=== PATIENT | female | born 1940 | race Caucasian/White ===

== ENCOUNTER 2020-12-30 05:49 | Emergency (ER) | payer MEDICARE, OTHER ==
--- NOTE | 2020-12-30 06:25 | EDM.PDOC ---
<Sam Schofield - Last Filed: 12/30/20 08:28> ED HPI GENERAL MEDICAL PROBLEM - General Chief Complaint: General Stated Complaint: WEAK/ABDOMINAL PAIN/HEADACHE Time Seen by Provider: 12/30/20 06:24 - History of Present Illness INITIAL COMMENTS - FREE TEXT/NARRATIVE: 80-year-old female presents the emergency room with loss of appetite. Patient has not had any appetite for the last couple of days she has not been eating and is drinking very little. As the patient recalls the last time she had an episode like this was thought to perhaps be due to hyponatremia. Patient has not had any diarrhea. She has had some nausea and a mild upset stomach. Her urine output has diminished some because she is not drinking. She really is not complaining of any abdominal discomfort or chest discomfort. She has not noticed loss of taste or smell. She is not aware of any fevers or chills she is not having any breathing difficulties or shortness of breath. 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 Denies: Abdominal Pain, Constipation, Diarrhea, Vomiting : Reports: No Symptoms Musculoskeletal: Reports: No Symptoms ED EXAM, GENERAL - Physical Exam Exam: See Below Exam Limited By: No Limitations General Appearance: Alert, No Apparent Distress Head: Atraumatic, Normocephalic Neck: Normal Inspection, Supple, Non-Tender, Full Range of Motion Respiratory/Chest: No Respiratory Distress, Lungs Clear, Normal Breath Sounds Cardiovascular: Regular Rate, Rhythm, No Edema, No Murmur GI/Abdominal: Normal Bowel Sounds, Soft, Non-Tender Back Exam: Normal Inspection. No: CVA Tenderness (L), CVA Tenderness (R) Extremities: Normal Inspection, No Pedal Edema Neurological: Alert, Oriented, Normal Cognition Psychiatric: Normal Affect, Normal Mood Skin Exam: Warm, Dry, Intact #1 Interpretation EKG Date: 12/30/20 Rhythm: NSR Rate (Beats/Min): 56 [place]: Normal P-Wave: Present QRS: Normal ST-T: Normal QT: Prolonged Comparison: NA - No Prior EKG EKG Interpretation Comments: Abnormal EKG Course - Re-Assessments/Exams Free Text/Narrative Re-Assessment/Exam: 12/30/20 08:28 Patient has mild hyponatremia sodium is 128 chloride 91 potassium 3.5 CO2 24 BUN 14 creatinine 0.7 anion gap is 16.5 hemoglobin hematocrit 13.7 and 40.1% respectively white count is low at 2810 platelet count 233,000 KUB and upright are nondiagnostic she is got significant degenerative changes noted she has some nonspecific air-fluid levels noted on the upright otherwise no diagnostic abnormalities at this point were waiting for Covid and her UA 12/30/20 09:01 At this time is change of shift further evaluation and disposition per Dr. Bo. Departure - Departure Disposition: Home, Self-Care 01 Clinical Impression: COVID-19, Nausea - Discharge Information Prescriptions: Metoclopramide HCl [Reglan] 5 mg PO Q6H PRN #20 tablet PRN Reason: Nausea/Vomiting Referrals: Abraham Fontenot MD [Primary Care Provider] - 1 Week Forms: ED Department Discharge Additional Instructions: Drink plenty of fluids. Take the reglan 5mg every 6 hours as needed for nausea and vomiting. Take tylenol or motrin for any fever. Follow up with your doctor within a week. Please return if you are worse. Sepsis Event Note (ED) - Evaluation Sepsis Screening Result: No Definite Risk <Pool Bo - Last Filed: 12/30/20 12:25> Course - Vital Signs Last Recorded V/S: Last Vital Signs Temp 99.0 F 12/30/20 10:15 Pulse 52 L 12/30/20 10:45 Resp 14 12/30/20 10:45 BP 140/64 12/30/20 10:45 Pulse Ox 90 L 12/30/20 10:45 - Orders/Labs/Meds Orders: Active Orders 24 hr Category Date Time Status Vital Signs [RC] Q15M Care 12/30/20 09:33 Active CULTURE URINE [MREF] Stat Lab 12/30/20 10:10 Received Dextrose 5%-0.9% NaCl [Dextrose 5%-Normal Saline] 1,000 Med 12/30/20 07:00 Active ml IV ASDIRECTED EPINEPHrine [Adrenalin] Med 12/30/20 09:33 Active 0.3 mg IM ONETIME PRN Famotidine [Pepcid] Med 12/30/20 09:33 Active 20 mg IVPUSH ONETIME PRN Sodium Chloride 0.9% [Saline Flush] Med 12/30/20 09:45 Active 30 ml FLUSH ASDIRECTED diphenhydrAMINE [Benadryl] Med 12/30/20 09:33 Active 50 mg IVPUSH ONETIME PRN methylPREDNISolone Sod Succ [Solu-MEDROL] Med 12/30/20 09:33 Active 125 mg IVPUSH ONETIME PRN Medication Orders Diphenhydramine HCl (Diphenhydramine 50 Mg/Ml Sdv) 50 mg IVPUSH ONETIME PRN PRN Reason: hypersensitivity reaction Epinephrine HCl (Epinephrine 1 Mg/Ml Sdv) 0.3 mg IM ONETIME PRN PRN Reason: hypersensitivity reaction Famotidine (Famotidine 20 Mg/2 Ml Sdv) 20 mg IVPUSH ONETIME PRN PRN Reason: hypersensitivity reaction Dextrose/Sodium Chloride (Dextrose 5%-Normal Saline) 1,000 mls @ 125 mls/hr IV ASDIRECTED [facility] Last Admin: 12/30/20 08:05 Dose: 125 mls/hr Documented by: ZACK Methylprednisolone Sodium Succinate (Methylprednisolone Sodium Succinate 125 Mg/2 Ml Sdv) 125 mg IVPUSH ONETIME PRN PRN Reason: hypersensitivity reaction Sodium Chloride (Sodium Chloride 0.9% 10 Ml Syringe) 30 ml FLUSH ASDIRECTED [facility] Labs: Laboratory Tests 09/12/30/20 12/30/20 Range/Units 06:30 06:30 06:32 WBC 2.91 L (3.98-10.04) K/mm3 RBC 4.69 (3.98-5.22) M/mm3 Hgb 13.7 (11.2-15.7) gm/dl Hct 40.1 (34.1-44.9) % MCV 85.5 (79.4-94.8) fl MCH 29.2 (25.6-32.2) pg MCHC 34.2 (32.2-35.5) g/dl RDW Std Deviation 43.0 (36.4-46.3) fL Plt Count 233 D (182-369) K/mm3 MPV 10.3 (9.4-12.3) fl Neut % (Auto) 55.5 (34.0-71.1) % Lymph % (Auto) 30.2 (19.3-51.7) % [place] % (Auto) 13.7 H (4.7-12.5) % Eos % (Auto) 0 L (0.7-5.8) Baso % (Auto) 0.3 (0.1-1.2) % Neut # (Auto) 1.61 (1.56-6.13) K/mm3 Lymph # (Auto) 0.88 L (1.18-3.74) K/mm3 [place] # (Auto) 0.40 H (0.24-0.36) K/mm3 Eos # (Auto) 0.00 L (0.04-0.36) K/mm3 Baso # (Auto) 0.01 (0.01-0.08) K/mm3 Sodium 128 L (136-145) mEq/L Potassium 3.5 (3.5-5.1) mEq/L Chloride 91 L (98-107) mEq/L Carbon Dioxide 24 (21-32) mEq/L Anion Gap 16.5 H (5-15) BUN 14 (7-18) mg/dL Creatinine 0.7 (0.55-1.02) mg/dL Est Cr Clr Drug Dosing 49.85 mL/min Estimated GFR (MDRD) > 60 (>60) mL/min BUN/Creatinine Ratio 20.0 H (14-18) Glucose 122 H (70-99) mg/dL Calcium 8.4 L (8.5-10.1) mg/dL Total Bilirubin 0.4 (0.2-1.0) mg/dL AST 27 (15-37) U/L ALT 29 (14-59) U/L Alkaline Phosphatase 67 (46-116) U/L Troponin I < 0.017 (0.00-0.056) ng/mL Total Protein 7.5 (6.4-8.2) g/dl Albumin 3.3 L (3.4-5.0) g/dl Globulin 4.2 gm/dL Albumin/Globulin Ratio 0.8 L (1-2) Lipase 139 (73-393) U/L Urine Color (Yellow) Urine Appearance (Clear) Urine pH (5.0-8.0) Ur Specific Welcome (1.005-1.030) Urine Protein (Negative) Urine Glucose (UA) (Negative) Urine Ketones (Negative) Urine Occult Blood (Negative) Urine Nitrite (Negative) Urine Bilirubin (Negative) Urine Urobilinogen (0.2-1.0) Ur Leukocyte Esterase (Negative) Urine RBC (0-5) /hpf Urine WBC (0-5) /hpf Ur Squamous Epith Cells (0-5) /hpf Urine Bacteria (FEW) /hpf Urine Mucus (FEW) /hpf SARS-CoV-2 RNA (LAUREL) (NEGATIVE) 12/30/20 12/30/20 Range/Units 08:00 10:10 WBC (3.98-10.04) K/mm3 RBC (3.98-5.22) M/mm3 Hgb (11.2-15.7) gm/dl Hct (34.1-44.9) % MCV (79.4-94.8) fl MCH (25.6-32.2) pg MCHC (32.2-35.5) g/dl RDW Std Deviation (36.4-46.3) fL Plt Count (182-369) K/mm3 MPV (9.4-12.3) fl Neut % (Auto) (34.0-71.1) % Lymph % (Auto) (19.3-51.7) % [place] % (Auto) (4.7-12.5) % Eos % (Auto) (0.7-5.8) Baso % (Auto) (0.1-1.2) % Neut # (Auto) (1.56-6.13) K/mm3 Lymph # (Auto) (1.18-3.74) K/mm3 [place] # (Auto) (0.24-0.36) K/mm3 Eos # (Auto) (0.04-0.36) K/mm3 Baso # (Auto) (0.01-0.08) K/mm3 Sodium (136-145) mEq/L Potassium (3.5-5.1) mEq/L Chloride (98-107) mEq/L Carbon Dioxide (21-32) mEq/L Anion Gap (5-15) BUN (7-18) mg/dL Creatinine (0.55-1.02) mg/dL Est Cr Clr Drug Dosing mL/min Estimated GFR (MDRD) (>60) mL/min BUN/Creatinine Ratio (14-18) Glucose (70-99) mg/dL Calcium (8.5-10.1) mg/dL Total Bilirubin (0.2-1.0) mg/dL AST (15-37) U/L ALT (14-59) U/L Alkaline Phosphatase (46-116) U/L Troponin I (0.00-0.056) ng/mL Total Protein (6.4-8.2) g/dl Albumin (3.4-5.0) g/dl Globulin gm/dL Albumin/Globulin Ratio (1-2) Lipase (73-393) U/L Urine Color Yellow (Yellow) Urine Appearance Clear (Clear) Urine pH 6.5 (5.0-8.0) Ur Specific [place] 1.020 (1.005-1.030) Urine Protein Negative (Negative) Urine Glucose (UA) Negative (Negative) Urine Ketones 1+ H (Negative) Urine Occult Blood Trace-lysed H (Negative) Urine Nitrite Negative (Negative) Urine Bilirubin Negative (Negative) Urine Urobilinogen 0.2 (0.2-1.0) Ur Leukocyte Esterase 1+ H (Negative) Urine RBC 5-10 H (0-5) /hpf Urine WBC 10-20 H (0-5) /hpf Ur Squamous Epith Cells 0-5 (0-5) /hpf Urine Bacteria Moderate H (FEW) /hpf Urine Mucus Few (FEW) /hpf SARS-CoV-2 RNA (LAUREL) Positive H (NEGATIVE) Meds: Medications Generic Name Dose Route Start Last Admin Trade Name Jocelyn PRN Reason Stop Dose Admin Diphenhydramine HCl 50 mg 12/30/20 09:33 Diphenhydramine 50 Mg/Ml Sdv IVPUSH ONETIME PRN hypersensitivity reaction Epinephrine HCl 0.3 mg 12/30/20 09:33 Epinephrine 1 Mg/Ml Sdv IM ONETIME PRN hypersensitivity reaction Famotidine 20 mg 12/30/20 09:33 Famotidine 20 Mg/2 Ml Sdv IVPUSH ONETIME PRN hypersensitivity reaction Dextrose/Sodium Chloride 1,000 mls @ 125 mls/hr 12/30/20 07:00 12/30/20 08:05 Dextrose 5%-Normal Saline IV 125 mls/hr ASDIRECTED ULISES Administration Methylprednisolone Sodium Succinate 125 mg 12/30/20 09:33 Methylprednisolone Sodium Succinate 125 Mg/2 Ml Sdv IVPUSH ONETIME PRN hypersensitivity reaction Sodium Chloride 30 ml 12/30/20 09:45 Sodium Chloride 0.9% 10 Ml Syringe FLUSH ASDIRECTED ULISES Discontinued Medications Generic Name Dose Route Start Last Admin Trade Name Jocelyn PRN Reason Stop Dose Admin Sodium Chloride 500 mls @ 999 mls/hr 12/30/20 06:49 12/30/20 07:05 Normal Saline IV 12/30/20 07:19 999 mls/hr .BOLUS ONE Administration Bamlanivimab 700 mg/ 310 mls @ 310 mls/hr 12/30/20 10:00 12/30/20 10:14 Etesevimab 1,400 mg/ Sodium IV 12/30/20 10:59 310 mls/hr Chloride ONETIME ONE Administration Ondansetron HCl 4 mg 12/30/20 06:52 12/30/20 07:05 Ondansetron 4 Mg/2 Ml Sdv IVPUSH 12/30/20 06:53 4 mg ONETIME ONE Administration - Re-Assessments/Exams Free Text/Narrative Re-Assessment/Exam: 12/30/20 12:[address] Schofield. Her COVID was positive. Her oxygen saturations looked good. I have ordered the bam. I spoke with the patient to provide information about Bam treatment. I offered them the Patient and Caregiver EUA Bam Fact Sheet to read and review. I stated the drug has been approved by an emergency use authorization (EUA} process and has not fully been FDA reviewed or approved. The patient meets the EUA requirements. I discussed there are other potential treatment options that are currently not FDA approved to treat COVID 19. Offered opportunity to ask questions and all questions were answered. The patient voiced understanding and agreed to proceed with treatment. She got the infusion and she feels good. Her oxygen saturations looked good. I talked to her about starting on dexamethasone. She did not want the dexamethasone at this time. Departure - Departure Time of Disposition: 12:20 Condition: Good - Discharge Information *PRESCRIPTION DRUG MONITORING PROGRAM REVIEWED*: Not Applicable *COPY OF PRESCRIPTION DRUG MONITORING REPORT IN PATIENT FRANTZ: Not Applicable Sepsis Event Note (ED) - Focused Exam Vital Signs: Vital Signs Temp Pulse Resp BP Pulse Ox 12/30/20 10:45 52 L 14 140/64 90 L 12/30/20 10:30 48 L 12 136/63 92 L 12/30/20 10:15 99.0 F 52 L 12 126/69 95 12/30/20 09:00 98.3 F 54 L 12 140/76 94 L 12/30/20 06:05 97.8 F 51 L 16 146/82 H 95 - My Orders Last 24 Hours: My Active Orders 12/30/20 09:33 Vital Signs [RC] Q15M EPINEPHrine [Adrenalin] 0.3 mg IM ONETIME PRN Famotidine [Pepcid] 20 mg IVPUSH ONETIME PRN diphenhydrAMINE [Benadryl] 50 mg IVPUSH ONETIME PRN methylPREDNISolone Sod Succ [Solu-MEDROL] 125 mg IVPUSH ONETIME PRN 12/30/20 09:45 Sodium Chloride 0.9% [Saline Flush] 30 ml FLUSH ASDIRECTED - Assessment/Plan Last 24 Hours: My Active Orders 12/30/20 09:33 Vital Signs [RC] Q15M EPINEPHrine [Adrenalin] 0.3 mg IM ONETIME PRN Famotidine [Pepcid] 20 mg IVPUSH ONETIME PRN diphenhydrAMINE [Benadryl] 50 mg IVPUSH ONETIME PRN methylPREDNISolone Sod Succ [Solu-MEDROL] 125 mg IVPUSH ONETIME PRN 12/30/20 09:45 Sodium Chloride 0.9% [Saline Flush] 30 ml FLUSH ASDIRECTED
[2020-12-30] MEDS ORDERED: Sodium Chloride 0.9% 500 ML IV ONE (06:49)
[2020-12-30] MEDS ORDERED: Ondansetron 4 MG/2 ML SDV IVPUSH ONE (06:52)
[2020-12-30] MEDS ORDERED: Dextrose 5%-0.9% NaCl 1,000 ML IV SCH (07:00)
--- NOTE | 2020-12-30 08:12 | CR ---
Abdomen: Supine and upright views of the abdomen were obtained. Comparison: No prior abdominal imaging is available. Scoliosis is noted within the spine. Degenerative change is scattered within the spine. Diffuse osteopenia is present. Bowel gas pattern appears within normal limits. No findings of bowel obstruction are seen. No discrete soft tissue abnormality is seen. Air-fluid levels are seen within the right colon which can be seen normally. Impression: 1. Findings as noted above. 2. Nothing acute is appreciated on two-view abdominal x-ray. Diagnostic code #2
--- NOTE | 2020-12-30 08:12 | CR ---
Chest: PA view of the chest was obtained. Comparison: No prior chest imaging is available. Heart is mildly enlarged. Tortuous thoracic aorta is seen. Lungs are clear with no acute parenchymal change. Bony structure shows nothing acute. Impression: 1. Mild cardiomegaly. 2. Nothing acute is appreciated on PA chest x-ray. Diagnostic code #2
[2020-12-30] MEDS ORDERED: Famotidine 20 MG/2 ML SDV IVPUSH PRN (09:33)
[2020-12-30] MEDS ORDERED: EPINEPHrine 1 MG/ML SDV IM PRN (09:33)
[2020-12-30] MEDS ORDERED: Bamlanivimab 700 MG, ETESEVIMAB 1,400 MG in Sodium Chloride 0.9% 100 ML IV ONE (09:33)
[2020-12-30] MEDS ORDERED: methylPREDNISolone Sodium Succinate 125 MG/2 ML SDV IVPUSH PRN (09:33)
[2020-12-30] MEDS ORDERED: diphenhydrAMINE 50 MG/ML SDV IVPUSH PRN (09:33)
[2020-12-30] MEDS ORDERED: Sodium Chloride 0.9% 10 ML Syringe FLUSH SCH (09:45)
== END 2020-12-30 13:10 | disposition home or self-care (01) ==
LOC: JD.ED 05:49
DX: U07.1 COVID-19 (principal); R11.0 Nausea; E87.1 Hypo-osmolality and hyponatremia; I10 Essential (primary) hypertension; Z79.82 Long term (current) use of aspirin
CPT/HCPCS: 36415; 71045; 74019; 80053; 81001; 83690; 84484; 85025; 87086; 93005; 96374; 99284; J2405; J7030; J7042; J7050; M0245; Q0245; U0002

== ENCOUNTER 2021-01-23 03:10 | Emergency (ER) | payer MEDICARE, OTHER ==
--- NOTE | 2021-01-23 04:20 | EDM.PDOC ---
ED [facility] GENERAL MEDICAL PROBLEM - General Chief Complaint: Cardiovascular Problem Stated Complaint: HIGH BP Time Seen by Provider: 01/23/21 04:00 Source of Information: Reports: Patient History Limitations: Reports: No Limitations - History of Present Illness INITIAL COMMENTS - FREE TEXT/NARRATIVE: Patient is an 80-year-old female with recent Covid diagnosis presenting with a chief complaint of elevated blood pressure reading at home. Patient states she takes blood pressure readings every day and normally is not this high. She reports taking multiple times with that remaining high. She states she is currently taking amoxicillin for sinus infection. Patient wonders if this is making her blood pressure elevated. Patient reports not having any symptoms associated with this. She is not experiencing headache, blurred vision, nausea, chest pain, abdominal pain. Patient admits to feeling anxious about her blood pressure reading. - Related Data Allergies Allergy/AdvReac Type Severity Reaction Status Date / Time No Known Allergies Allergy Verified 01/23/21 03:28 Home Meds: Home Meds Aspirin [Ecotrin EC] 81 mg PO DAILY 11/04/18 [History] Metoprolol Succinate [Toprol XL 50mg] 50 mg PO DAILY 11/04/18 [History] Furosemide 10 mg PO DAILY 12/30/20 [History] Metoclopramide HCl [Reglan] 5 mg PO Q6H PRN #20 tablet 12/30/20 [Rx] Past Medical History HEENT History: Reports: Cataract, Impaired Vision Other HEENT History: wears glasses Cardiovascular History: Reports: Hypertension QA TECH History: Reports: - Infectious Disease History Infectious Disease History: Reports: Novel Coronavirus - Past Surgical History HEENT Surgical History: Reports: Cataract Surgery GI Surgical History: Reports: Appendectomy Female Surgical History: Reports: Hysterectomy Social & Family History - Tobacco Use Tobacco Use Status *Q: Never Tobacco User - Caffeine Use Caffeine Use: Reports: None - Recreational Drug Use Recreational Drug Use: No ED ROS GENERAL - Review of Systems Review Of Systems: See Below Free Text/Narrative/Comment: In addition to that documented in the HPI above, the additional ROS was obtained: Constitutional: Denies fevers or chills Eyes: Denies vision changes ENMT: Denies sore throat CV: Denies chest pain Resp: Denies SOB GI: Denies vomiting or diarrhea : Denies painful urination MSK: Denies recent trauma Skin: Denies new rashes Neuro: Denies new numbness or tingling or weakness Endocrine: Denies unexpected weight loss Heme: Denies bleeding disorders ED EXAM, GENERAL - Physical Exam Exam: See Below Free Text/Narrative:: I have reviewed the triage vital signs Const: Well nourished, well developed, appears stated age Eyes: Pupils Equal and reactive to light bilaterally, no conjunctival injection HENT: No signs of trauma or swelling, Neck supple without meningismus CV: Regular Rate Rhythm, Warm, well-perfused extremities RESP: Unlabored respiratory effort GI: soft, non-tender, non-distended, no masses MSK: No gross deformities appreciated Skin: Warm, dry. 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 Sensation and motor function of extremities grossly intact. Psych: Appropriate mood and affect. Moderately anxious during discussion Course - Vital Signs Last Recorded V/S: Last Vital Signs Temp 36.1 C 01/23/21 03:24 Pulse 62 01/23/21 03:24 Resp 20 01/23/21 03:24 BP 177/76 H 01/23/21 03:24 Pulse Ox 100 01/23/21 03:24 Departure - Departure Time of Disposition: 04:20 Disposition: Home, Self-Care 01 Clinical Impression: Elevated blood pressure reading Instructions: Hypertension, Adult, [id number] Referrals: Abraham Fontenot MD [Primary Care Provider] - Forms: ED Department Discharge Sepsis Event Note (ED) - Evaluation Sepsis Screening Result: No Definite Risk - Focused Exam Vital Signs: Vital Signs Temp Pulse Resp BP Pulse Ox 01/23/21 03:24 36.1 C 62 20 177/76 H 100 - Assessment/Plan Assessment:: Patient is an 80-year-old female presenting with elevated blood pressure reading. During my evaluation, blood pressure was 141/71. Patient is well in appearance and not demonstrating any signs or symptoms concerning for ischemic stroke. Patient given significant reassurance and education regarding home blood pressure. No dictation for laboratory testing or imaging at this time. Patient feels comfortable and agrees with plan of care. Return precautions discussed as usual.
== END 2021-01-23 04:30 | disposition home or self-care (01) ==
LOC: JD.ED 03:10
DX: I10 Essential (primary) hypertension (principal); Z79.82 Long term (current) use of aspirin; Z79.899 Other long term (current) drug therapy; Z86.16 Personal history of COVID-19
CPT/HCPCS: 99283